=== PATIENT | female | born 1975 | race Two or more races ===

== ENCOUNTER 2024-09-16 21:21 | Emergency (ER) | payer MEDICAID, SELFPAY ==
[2024-09-16 21:21] VITALS: BMI 47.7
[2024-09-16 21:43] VITALS: BP 163/92; PULSE 115; RESP 18; TEMP 37; O2SAT 97
--- NOTE | 2024-09-16 21:48 | PD.EDRME ---
Rapid Medical Screening Exam RME Arrival date/time: 09/16/24 21:21 Chief Complaint: Abdominal Pain Time Seen by Provider: 09/16/24 21:28 Vital signs: Vital Signs Temperature 98.6 F 09/16/24 21:43 Pulse Rate 115 H 09/16/24 21:43 Respiratory Rate 18 09/16/24 21:43 Blood Pressure 163/92 H 09/16/24 21:43 Pulse Oximetry (%) 97 09/16/24 21:43 Oxygen Delivery Method Room Air 09/16/24 21:43 [facility] Narrative: Nausea, multiple episodes of diarrhea and abdominal cramping that started this morning.
[2024-09-16] MEDS: KETOROLAC INJ 60 MG/2 ML VIAL 30 MG IM (22:00)
[2024-09-16] MEDS: DICYCLOMINE 10 MG CAPSULE 20 MG PO (22:01)
[2024-09-16] MEDS: ONDANSETRON ODT 4 MG TABRAP PO (22:01)
[2024-09-16 22:09] LABS: Basophils % (Auto) 0 % (0-2.5); Eosinophils # (Auto) 0.2 Thou/mm3 (0.0-0.5); Eosinophils % (Auto) 2 % (0-10); Hematocrit 44.7 % (36.0-46.0); Hemoglobin 15.4 g/dL (12.0-16.0); Immature Granulocytes % (Auto) 0 % (0-0); Immature Granulocytes Auto 0.02 Thou/mm3 (0.00-0.00); Lymphocytes # (Auto) 1.1 Thou/mm3 (1.0-4.8); Lymphocytes % (Auto) 12 % (10-50); Mean Corpuscular HGB Conc 34.5 g/dl (31.0-37.0); Mean Corpuscular Hemoglobin 27.5 pg (25.0-35.0); Mean Corpuscular Volume 80 fL (80-100); Monocytes # (Auto) 0.5 Thou/mm3 (0.0-0.8); Monocytes % (Auto) 5 % (0-12); Neutrophils # (Auto) 7.4 Thou/mm3 (1.8-7.7); Neutrophils % (Auto) 81 % (37-80); Nucleated Red Blood Cell % 0 /100 WBC (0); Platelet Count 236 Thou/mm3 (140-440); RDW Standard Deviation 38.9 fL (36.4-46.3); Red Blood Count 5.59 Miln/mm3 (4.00-5.20); White Blood Count 9.2 Thou/mm3 (3.6-11.0)
[2024-09-16 22:38] LABS: Alanine Aminotransferase 31 U/L (10-49); Albumin, Serum 4.9 gm/dL (3.5-5.0); Albumin/Globulin Ratio 1.7 (1.2-2.2); Alkaline Phosphatase 132 U/L (46-116); Anion Gap 9 (7-16); Aspartate Amino Transferase 23 U/L (0-34); BUN/Creatinine Ratio 15 Ratio (12-20); Bilirubin,Total 0.8 mg/dL (0.3-1.2); Blood Urea Nitrogen 12 mg/dL (9-23); Calcium 9.7 mg/dL (8.3-10.6); Calcium (Corrected) 9.7 mg/dL (8.5-10.1); Carbon Dioxide 25.9 mMol/L (20.0-31.0); Chloride 105 mMol/L (98-107); Creatinine (Component) 0.8 mg/dL (0.6-1.3); Estimated Creatinine Clearance 122.6 mL/min (>60); Globulin 2.9 gm/dL (2.3-3.5); Glucose 119 mg/dL (74-106); Lipase 61 U/L (12-53); Osmolality,Calculated 280 (275-295); Potassium 3.9 mMol/L (3.4-5.1); Sodium 140 mMol/L (136-145); Total Protein 7.8 gm/dL (5.7-8.2); eGFR > 60 See Note
--- NOTE | 2024-09-16 22:47 | EDNOTE_ITS ---
Nausea/Vomit./Diarrhea-RME/HPI General Chief complaint: Abdominal Pain Stated complaint: ABD PAIN /NAUSEA AND DIARRHEA Time Seen by Provider: 09/16/24 21:28 Source: patient, RN notes reviewed and old records reviewed Arrival date/time: 09/16/24 21:21 Mode of arrival: ambulatory Limitations: no limitations RME / HPI RME / HPI Narrative: 48yof presents to ED for nausea, multiple episodes of diarrhea that started this morning. Patient c/o generalized abdominal cramping. No fever, bloody stools or urinary symptoms reported. No medications or treatments since symptom onset. Related Data Previous Rx's ?Medication ?Instructions ?Recorded dicyclomine 20 mg tablet 20 mg PO Q6HR PRN abdominal pain 09/17/24 #30 tabs loperamide 2 mg capsule (Imodium See Rx Instructions .Route 09/17/24 A-D) .COMPLEX PRN loose stool #30 caps ondansetron 4 mg disintegrating 4 mg PO Q6H PRN nausea and 09/17/24 tablet vomiting #10 tabs Allergies Allergy/AdvReac Type Severity Reaction Status Date / Time No Known Allergies Allergy Verified 05/24/24 00:22 Review of Systems Review of Systems Systems Reviewed: All systems reviewed, normal except as documented Constitutional Constitutional: Denies fever(s) Gastrointestinal Gastrointestinal: Reports abdominal pain, Reports loose stools, Reports nausea and Denies vomiting Genitourinary Genitourinary: Denies dysuria and Denies flank pain Past Medical History Past Medical History CARDIAC: Positive Hypertension GASTROINTESTINAL: Positive Obesity Social History SMOKING STATUS: Never smoker SUBSTANCE USE: does not use ALCOHOL: Never ED Exam General Limitations: Present no limitations General appearance: Present alert, in no apparent distress and obese Head Head exam: Present atraumatic and normocephalic Eye Eye exam: Present normal appearance, PERRL and EOMI ENT ENT exam: Present normal exam and mucous membranes moist Neck Neck exam: Present normal inspection and full ROM Chest Chest inspection: Present normal inspection and symmetric chest wall rise Respiratory Respiratory exam: Present normal lung sounds bilaterally; Absent respiratory distress Cardiovascular Cardiovascular exam: Present regular rate and normal rhythm Abdominal Exam Abdominal exam: Present soft; Absent distention, tenderness, guarding or rebound Extremities Exam Extremities exam: Present normal inspection and full ROM Back Exam Back exam: Absent CVA tenderness (R) or CVA tenderness (L) Neurological Exam Neurological exam: Present alert and oriented X3 Psychiatric Psychiatric exam: Present normal affect and normal mood Skin Skin exam: Present warm, dry, intact and normal color Course Quality Measures none Orders Category Date Time Status CBC Stat Lab 09/16/24 21:54 Completed CMP [Comprehensive Metabolic Panel] Stat Lab 09/16/24 21:54 Completed Lipase Stat Lab 09/16/24 21:54 Completed UA [Urinalysis] Stat Lab 09/16/24 22:40 Completed Dicyclomine [Bentyl] Med 09/16/24 21:48 Discontinued 20 mg PO X1 ONE Ketorolac Inj [Toradol Inj] Med 09/16/24 21:48 Discontinued 30 mg IM X1 ONE Ondansetron Odt [Zofran Odt] Med 09/16/24 21:48 Discontinued 4 mg PO X1 ONE Vital Signs Vital signs: Vital Signs Temperature 98.6 F 09/16/24 21:43 Pulse Rate 115 H 09/16/24 21:43 Respiratory Rate 18 09/16/24 21:43 Blood Pressure 163/92 H 09/16/24 21:43 Pulse Oximetry (%) 97 09/16/24 21:43 Oxygen Delivery Method Room Air 09/16/24 21:43 Nausea/Vomiting/Diarrhea MDM Narrative MDM Narrative:: 48yof presents to ED for nausea, multiple episodes of diarrhea that started this morning. Patient c/o generalized abdominal cramping. No fever, bloody stools or urinary symptoms reported. No medications or treatments since symptom onset. Labs reassuring. Patient is well-appearing, vitals are stable, abdomen is benign. Suspect viral etiology of symptoms. Encouraged adequate fluids, symptomatic treatment prn. Stable for dc, RTED precautions given. Patient data External records reviewed:: [facility] previous records (05/24/24 ED visit for pelvic pain) Clinical information provided by:: patient Social determinants that could affect healthcare access:: other (specify) (poor access to healthcare) Patient has the following chronic illnesses:: HTN, obesity How is presenting disease/condition affected by chronic disease/condition?: exacerbated by Evaluation data The following diagnostics were reviewed and interpreted by me:: lab results Lab and/or radiology exams considered but not ordered:: CT abd/pelvis: benign abdomen Interpretation Summary: wbc 7 UA negative Medications / Prescriptions Medications / Prescriptions considered but not ordered:: no antibiotics recommended at this time Medication administrations:: Medication Administration History Discontinued Medications Dicyclomine HCl (Dicyclomine 10 Mg Capsule) 20 mg PO X1 ONE Stop: 09/16/24 21:49 Last Admin: 09/16/24 22:01 Dose: 20 mg Documented By: Ketorolac Tromethamine (Ketorolac Inj 60 Mg/2 Ml Vial) 30 mg IM X1 ONE Stop: 09/16/24 21:49 Last Admin: 09/16/24 22:00 Dose: 30 mg Documented By: Ondansetron HCl (Ondansetron Odt 4 Mg Tabrap) 4 mg PO X1 ONE; Protocol Stop: 09/16/24 21:49 Last Admin: 09/16/24 22:01 Dose: 4 mg Documented By: above medications administered in ED Consultations Consultation(s) initiated? (list below): No Diagnosis Nausea Differential Diagnosis: traveler's diarrhea, food poisoning, gastroenteritis and dehydration Most likely diagnosis given after review of the tests above:: viral gastroenteritis Admission Indicated Admission indicated?: not indicated Admission Request Was there a request for admission?: No Disposition Plan Disposition Plan: Discharge Discharge Attestation Discharge Attestation: The patient and all family members were given an opportunity to ask questions and understood the discharge instructions. Discharge instructions specifically effects, indications for sooner follow up or return to the emergency department, and the expected course of current diagnosis. Patient condition: Stable Discharge Plan Plan Patient Disposition: HOME (Self Care) Patient condition on transfer: Stable Prescriptions/Referrals Prescriptions/Med Rec: New ondansetron 4 mg tablet,disintegrating 4 mg PO Q6H PRN (Reason: nausea and vomiting) Qty: 10 0RF loperamide [Imodium A-D] 2 mg capsule See Rx Instructions .ROUTE .COMPLEX PRN (Reason: loose stool) Qty: 30 0RF Rx Instructions: 2 tabs orally x 1 dose. Then 1 tab orally after each loose stool; max 4 tabs/24 hours dicyclomine 20 mg tablet 20 mg PO Q6HR PRN (Reason: abdominal pain) Qty: 30 0RF Referrals: Temporary Provider,ED [Physician] - In 1 week Problem List Clinical Impression: Viral gastroenteritis Patient/Caregiver Discharge Instructions Education Materials: ED Gastroenteritis, Viral (Adult) Additional Instructions: Make sure to stay hydrated and drink plenty of fluids. Print Language: [place]er Stand Alone Forms: Merry Award Info., Patient Portal Info Letter PA/[employer] Supervising Physician PA/[employer] Supervising Physician: Carlos Manuel
[2024-09-16 23:13] LABS: Collection Type, Urine Clean Catch
[2024-09-16 23:18] LABS: Bilirubin,Urine Negative (Negative); Blood,Urine Negative (Negative); Clarity,Urine Clear (Clear/Hazy); Color,Urine Yellow (Lt Yel-Yel); Glucose, Urine Negative (Negative); Ketones,Urine Negative (Negative); Leukocyte Esterase,Urine Negative (Negative); Nitrite,Urine Negative (Negative); Protein,Urine Negative (Neg - Trace); RBC,Urine 3 /hpf (0-3); Specific Gravity,Urine 1.026 (1.001-1.035); Squamous Epithelial Cell,Urine < 1 /hpf (0-5); Urobilinogen,Urine Negative mg/dL (0.0-1.0); WBC,Urine 1 /hpf (0-5)
[2024-09-17 00:12] VITALS: RESP 18
== END 2024-09-17 00:14 | disposition home or self-care (01) ==
LOC: SERX 09-17 00:11
PROVIDERS: Physician Assistant; Emergency Provider Emergency Medicine; PCP Family Medicine
DX: A08.4 Viral intestinal infection, unspecified (principal)
CPT/HCPCS: 36415; 80053; 81001; 83690; 85025; 96372; 99283; J1885; Q0162; A9270

== ENCOUNTER → 2025-02-08 | Outpatient (CLI) | payer MEDICAID, SELFPAY ==
--- NOTE | 2025-02-08 09:00 | XR_ITS ---
Examination: Abdomen sonogram, complete Date and time of exam: February 08, 2025 0928 hours INDICATIONS: Preop bariatric surgery. Technique: Multiple real-time grayscale transabdominal sonographic images of the abdomen have been obtained. Findings: Absent gallbladder Common bile duct 0.4 cm Pancreatic head 1.6 cm Aorta normal size. Liver 16.4 cm fatty infiltration no focal liver lesions Normal hepatopedal portal venous flow Patent IVC Right kidney 12.4 cm renal cortex 2.3 cm Left kidney 12.9 cm cortex 2.7 cm Mild bilateral renal parenchymal scar formation Spleen 9.5 cm IMPRESSION: Absent gallbladder Normal common bile duct Fatty infiltration throughout the liver
--- NOTE | 2025-02-08 09:30 | XR_ITS ---
Examination: Esophagram. Fluoroscopy 13 spot fluoroscopic films of the esophagus Upright PA chest Upright soft tissue lateral neck single view INDICATIONS: Preop gastric bypass, heartburn episodes months TECHNIQUE AND FINDINGS: Patient swallowed thin barium with 13 spot fluoroscopic films of the esophagus Fluoroscopy 10 seconds Upright PA chest single view demonstrates normal heart size clear lungs Soft tissue lateral neck demonstrates normal epiglottis Primary peristaltic esophageal waves noted No constricting esophageal lesion Mild gastroesophageal reflux No stricture at the gastroesophageal junction IMPRESSION: Mild gastroesophageal reflux
== END | disposition home or self-care (01) ==
PROVIDERS: PCP Physician Assistant; Referring Provider Surgery; Visit Provider Surgery
DX: K76.0 Fatty (change of) liver, not elsewhere classified (principal); K21.9 Gastro-esophageal reflux disease without esophagitis; Z90.49 Acquired absence of other specified parts of digestive tract
CPT/HCPCS: 74220; 76700; A4699